=== PATIENT | female | born 1940 | race Caucasian/White ===

== ENCOUNTER 2023-09-24 12:28 | Emergency (ER) | payer OTHER, SELFPAY ==
[2023-09-24 12:36] VITALS: BP 143/71; PULSE 70; RESP 16; TEMP 37.1; O2SAT 93
--- NOTE | 2023-09-24 12:52 | ED.WOUNDLAC ---
HPI - Wound/Laceration General Chief Complaint: Skin/Abscess/Foreign Body Stated Complaint: Toe Pain/Swelling History of Present Illness HPI narrative: Patient presents with tenderness swelling and warmth to left great toe. Related Data Home Medications Medication Instructions Recorded Confirmed albuterol sulfate 90 mcg/actuation inhalation 09/24/23 aerosol inhaler apixaban 5 mg tablet (Eliquis) mg 09/24/23 atorvastatin 40 mg tablet mg 09/24/23 carvedilol 25 mg tablet mg 09/24/23 furosemide 40 mg tablet mg 09/24/23 isosorbide dinitrate 5 mg tablet mg 09/24/23 levothyroxine 75 mcg tablet mcg 09/24/23 pravastatin 20 mg tablet mg 09/24/23 temazepam 30 mg capsule mg 09/24/23 Allergies Allergy/AdvReac Type Severity Reaction Status Date / Time Sulfa (Sulfonamide Allergy Rash Verified 09/24/23 12:44 Antibiotics) Review of Systems Review of Systems: CONSTITUTIONAL: Denies fever, chills, or sweats. EYES: Denies visual changes, redness, or discharge. ENT: Denies rhinorrhea, congestion, sore throat, or otalgia. CARDIOVASCULAR: Denies chest pain, palpitations, or edema. RESPIRATORY: Denies cough or dyspnea. GASTROINTESTINAL: Denies abdominal pain, nausea, vomiting, or diarrhea. GENITOURINARY: Denies dysuria or hematuria. SKIN: Denies rash or itching. MUSCULOSKELETAL: Denies back pain, joint pain, or myalgia. NEUROLOGIC: Denies headache, numbness, or weakness. PSYCHIATRIC: Denies anxiety or depression. PMFSH Comments At time of signature, agree with nursing past medical, surgical, social and family history. There is no relevant family history pertinent to the presenting complaint Exam Narrative: GENERAL: Well-appearing, well-nourished, and in no acute distress. HEAD: Normocephalic, atraumatic. EYES: PERRLA and EOMI. ENT: Nares clear, no rhinorrhea or epistaxis. Mucous membranes moist. NECK: Supple. CHEST: Clear to auscultation. No respiratory distress. HEART: Regular rate and rhythm. No murmur heard. Normal peripheral pulses. ABDOMEN: Soft, nontender, nondistended, normal active bowel sounds. EXTREMITIES: Normal range of motion. No edema.sWELLING AND REDNESS AND FLUCTUANCE CONSISTENT WITH PARONYCHIA.right great toe NORMAL CAP REFILL. NORMAL SENSATION OF DISTAL TOE. NORMAL 2 POINT DISCRIMINATION. NORMAL MOVEMENT OF TOE AT PIP, DIP, MCP. NORMAL FOOT EXAM. NO STREAKING OR REDNESS INTO FOOT SKIN: Warm, dry, no rash. NEURO: No focal deficits. Alert and oriented x3. [place] Coma Scale Eye Opening: Spontaneous 4 [place] Coma Scale Motor: Obeys Commands 6 Sameera Coma Scale Verbal: Oriented 5 Sameera Coma Scale Total 15 Course Course Level of Care: Express Care Visit Vital Signs Vital signs: Vital Signs Temperature 37.1 C 09/24/23 12:36 Pulse Rate 70 09/24/23 12:36 Respiratory Rate 16 09/24/23 12:36 Blood Pressure 143/71 H 09/24/23 12:36 Pulse Oximetry 93 09/24/23 12:36 Oxygen Delivery Room Air 09/24/23 12:36 Temperature 37.1 C 09/24/23 12:36 Pulse Rate 70 09/24/23 12:36 Respiratory Rate 16 09/24/23 12:36 Blood Pressure 143/71 H 09/24/23 12:36 Pulse Oximetry 93 09/24/23 12:36 Oxygen Delivery Room Air 09/24/23 12:36 Please NICKI schedule a followup visit with your personal physician for further evaluation and treatment. Including recheck and discussion of your blood pressure. If your symptoms persist, change or worsen significantly before you can contact your personal physician then please, without delay, go to the emergency department for further evaluation Discharge Plan Discharge Clinical Impression: Paronychia Patient Disposition: Home, Self-Care Condition: Stable Instructions: Antibiotic Form, Paronychia (ED) Additional Instructions: warm compresses to the area 20-30 minutes 4-6 times a day and as needed elevate the area if possible antibiotic as directed--finish the medicine tylenol/ibuprofen for pain Use the medication as p
== END 2023-09-24 13:01 | disposition home or self-care (01) ==
PROVIDERS: Emergency Provider Nurse Practitioner Family; PCP Family Medicine
DX: L03.032 Cellulitis of left toe (principal); E78.00 Pure hypercholesterolemia, unspecified; I10 Essential (primary) hypertension; I73.9 Peripheral vascular disease, unspecified
CPT/HCPCS: 99213; G0463